=== PATIENT | male | born 1940 | race African-American/Black ===

== ENCOUNTER → 2019-07-18 | Outpatient (CLI) | payer MEDICARE, OTHER ==
[~2019-07-18] MED LIST: ASPIRIN 81M81 MG/TA2 PO; BACTRIM DS 8001 TAB PO; LASIX 20MG TABL20 MG PO; MOBIC15 MG PO; NORCO 325 MG-51 TAB PO; PRILOTC; TOFRANIL 25MG T25 MG PO; TOPROL XL 50MG50 MG PO; VESICARE 5MG5 MG PO; ZOCOR 40MG40 MG PO
== END ==
LOC: ZCOL.LAB 14:05
DX: M79.89 Other specified soft tissue disorders (principal)

== ENCOUNTER → 2019-07-30 | Outpatient (CLI) | payer MEDICARE, OTHER | LOC: ZCOL.LAB 12:59 | DX: M25.442 Effusion, left hand (principal) ==

== ENCOUNTER 2019-08-02 07:43 | Day surgery (SDC) | payer MEDICARE, OTHER ==
[~2019-08-02] VITALS: Ht 170.2 cm; Wt 88.4 kg
[2019-08-02 08:02] VITALS: BP 152/80; PULSE 66; TEMP 98.5
[2019-08-02] MEDS ORDERED: ULTRAM 50MG TAB50 MG PO (08:25)
[2019-08-02 09:48] VITALS: BP 128/64; PULSE 57
--- NOTE | 2019-08-02 09:48 | NUR ---
Patient returns to room 7 per cart from surgery accompanied by Lila CHERRY and Valentin MALDONADO. Patient is awake and alert. Left arm elevated on pillow. Claudio wrap dressing dry on the left hand. IV fluids infusing and site is free of redness. Temp 97.8 and room air sats 94%. Siderails up x2 and call light in reach. Spouse in room. Taking sips of water.
[2019-08-02] MEDS ORDERED: RIFADIN300 MG PO (10:02)
[2019-08-02] MEDS ORDERED: TYLENOL W/COD1 UDTAB PO (10:02)
[2019-08-02 10:03] VITALS: BP 137/68; PULSE 55
[2019-08-02] MEDS ORDERED: BACTRIM DS 8001 TAB PO (10:03)
--- NOTE | 2019-08-02 10:03 | NUR ---
Sipping on orange juice. Room air sats 99%. Denies nausea or pain.
[2019-08-02 10:18] VITALS: BP 136/71; PULSE 61
--- NOTE | 2019-08-02 10:18 | NUR ---
Eating crackers and drinking juice. Room air sats 98%.
--- NOTE | 2019-08-02 10:30 | NUR ---
IV discontinued and states that his left hand is beginning to hurt.
--- NOTE | 2019-08-02 10:40 | NUR ---
Rates pain at 5-6/10. Medicated with [place] 7.5mg two tabs. Patient is dressed and awaits ride home. Spouse in room with the patient.
--- NOTE | 2019-08-02 10:47 | NUR ---
Patient dismissal instructions given and voices understanding of these. Provided scripts x3 and office number for questions and concerns.
--- NOTE | 2019-08-02 11:09 | NUR ---
States that the pain medication is helping and reinforced need to keep the left hand elevated. Spouse also voices understanding of this. Ride here and patient dismissed to home driven by family members with instructions in hand and taken to the front door per wheelchair by Sophie CHERRY.
== END 2019-08-02 11:07 | disposition home or self-care (01) ==
LOC: SDCO 07:43
DX: L02.512 Cutaneous abscess of left hand (principal); S61.012A Laceration without foreign body of left thumb without damage to nail, initial encounter; I10 Essential (primary) hypertension; G47.33 Obstructive sleep apnea (adult) (pediatric); Z79.899 Other long term (current) drug therapy; Z79.82 Long term (current) use of aspirin
CPT/HCPCS: J0690; J2704; J7120

== ENCOUNTER 2022-05-19 14:07 | Observation (INO) | payer MEDICARE, OTHER ==
[2022-05-19] VITALS (40 sets, daily range): BP systolic 115; BP diastolic 64; PULSE 65; TEMP 97.3; O2SAT 99–100
[~2022-05-19] VITALS: Ht 170.2 cm; Wt 84.0 kg
[~2022-05-19 14:07] MED LIST changes: +RIFADIN300 MG PO; +TYLENOL W/COD1 UDTAB PO; +ULTRAM 50MG TAB50 MG PO
[2022-05-19] MEDS ORDERED: FLONASE NASAL S16 GM NS (14:31)
[2022-05-19] MEDS ORDERED: NEURONTIN300 MG/CAP PO (14:32)
[2022-05-19] MEDS ORDERED: TOFRANIL 25MG T25 MG PO (14:33)
[2022-05-19] MEDS ORDERED: NAPROSYN500 MG PO (14:35)
[2022-05-19] MEDS ORDERED: PRILOSEC 20MG20 MG PO (14:36)
[2022-05-19] MEDS ORDERED: NITROSTAT0.4 MG/TAB SL (14:36)
[2022-05-19] MEDS ORDERED: ZOCOR 40MG40 MG PO (14:37)
[2022-05-19] MEDS ORDERED: VESICARE 5MG5 MG PO (14:38)
[2022-05-19] MEDS ORDERED: MAXZIDE-25MG TA1 TAB PO (14:38)
--- NOTE | 2022-05-19 15:13 | NUR ---
PT ADMITTED TO MEDICAL UNIT. ADMISSION INTAKE AND ASSESSMENT COMPLETED, PT DEMENTED AT BASELINE AND UNABLE TO ANSWER MOST QUESTIONS. MED REC UPDATED. PT CURRENTLY REFUSING MOST TREATMENT, IS CONFUSED AT WHY HE IS HERE, WAITING FOR TO ARRIVE TO CALM PT. HEPARIN GTT INFUSING AT 10ML/HR. BED ALARMS IN PLACE. CALL LIGHT WITHIN REACH. WILL CONTINUE TO MONITOR.
--- NOTE | 2022-05-19 16:15 | NUR ---
CALLED RECEIVED FROM RT LEANN THAT PT WAS HAVING ACUTE ME. PLACED ON 2L PER NC. PT RSTING COMFORTABLY IN BED. PLACED ON TELE PER ORDERS. AWAITING FURTHER ORDERS AT THIS TIME.
--- NOTE | 2022-05-19 16:15 | NUR ---
CALLED RECEIVED FROM RT LEANN THAT PT WAS HAVING ACUTE SC. PLACED ON 2L PER NC. PT RSTING COMFORTABLY IN BED. PLACED ON TELE PER ORDERS. AWAITING FURTHER ORDERS AT THIS TIME.
[2022-05-19 16:47] LABS: HEMATOCRIT 38.7 % (42.0-52.0); HEMOGLOBIN 13.3 g/dl (13.5-18.0); MEAN CELL VOLUME 88 fl (80.0-100.0); MEAN CORPUSCULAR HEMOGLOBIN 30 pg (27-31); MEAN CORPUSCULAR HGB CONC 34 g/dl (33.0-37.0); MEAN PLATELET VOLUME 8.9 fl (7.4-10.4); PLATELET COUNT 380 K/mm3 (130-400); RED BLOOD COUNT 4.41 M/mm3 (4.20-5.60); REDCELL DISTRIBUTION WIDTH-CV 15.9 % (11.5-14.5)
[2022-05-19 17:01] LABS: ALBUMIN 3.2 gm/dL (3.4-4.8); CALCIUM 8.5 mg/dL (8.4-10.2); CREATININE, serum 0.78 mg/dL (0.72-1.25); PHOSPHOROUS 2.9 mg/dL (2.3-4.7); POTASSIUM 4.3 mmol/L (3.5-4.5)
--- NOTE | 2022-05-19 17:32 | NUR ---
1709: pt arrived to icu3, family at bedside. pt alert on 2L nc, satting 100%. vss. pt able to tell me where he is but has dementia at baseline. pt calm and cooperative with cares. tnkase pushed at 1709 upon arrival. hep gtt running @ 10ml/hr. trop 1.331, dr lynn lerma. currently working on transfer to [facility].
--- NOTE | 2022-05-19 17:32 | NUR ---
1709: pt arrived to icu3, family at bedside. pt alert on 2L nc, satting 100%. vss. pt able to tell me where he is but has dementia at baseline. pt calm and cooperative with cares. tnkase pushed at 1709 upon arrival. hep gtt running @ 10ml/hr. trop 1.331, dr lynn lerma. currently working on transfer to [facility].
[2022-05-19] MEDS ORDERED: COREG 3.123.125 MG/T PO (17:48)
--- NOTE | 2022-05-19 18:56 | NUR ---
181: Pt transferred to [facility] by EMS [employer]. PT AND DAUGHTER AT BEDSIDE. UPDATED ON POC AND ALL QUESTIONS ANSWERED. PT VS REMAIN STABLE. PT CONTINUES TO DENY CHEST PAIN. REPORT GIVEN TO JO ANN POPE AT [facility]. HEP XA AND PTT WERE RE-DRAWN PRIOR TO DEPARTURE. PTT >300, HEPXA >2. PER PROTOCOL TO STOP 2 HRS. DISCUSSED W/ PHARMACY AND TOSHIA CHERRY RECEIVING PT, CONTINUE TO FOLLOW PROTOCOL, HEP GTT PLACED ON STDBY FOR TRANSFER. TOSHIA CHERRY STATED THEY WOULD REDRDAW UPON ARRIVAL. NO FURTHER NEEDS EXPRESSED.
--- NOTE | 2022-05-19 18:56 | NUR ---
181: Pt transferred to [facility] by EMS [employer]. PT AND DAUGHTER AT BEDSIDE. UPDATED ON POC AND ALL QUESTIONS ANSWERED. PT VS REMAIN STABLE. PT CONTINUES TO DENY CHEST PAIN. REPORT GIVEN TO JO ANN POPE AT [facility]. HEP XA AND PTT WERE RE-DRAWN PRIOR TO DEPARTURE. PTT >300, HEPXA >2. PER PROTOCOL TO STOP 2 HRS. DISCUSSED W/ PHARMACY AND TOSHIA CHERRY RECEIVING PT, CONTINUE TO FOLLOW PROTOCOL, HEP GTT PLACED ON STDBY FOR TRANSFER. TOSHIA CHERRY STATED THEY WOULD REDRDAW UPON ARRIVAL. NO FURTHER NEEDS EXPRESSED.
== END 2022-05-19 19:00 | disposition critical access hospital (66) ==
LOC: MEDICAL 14:07
PROVIDERS: ADMIT Internal Medicine
DX: I21.3 ST elevation (STEMI) myocardial infarction of unspecified site (principal); I50.9 Heart failure, unspecified; K21.9 Gastro-esophageal reflux disease without esophagitis; I11.0 Hypertensive heart disease with heart failure; E78.5 Hyperlipidemia, unspecified; F03.90 Unspecified dementia, unspecified severity, without behavioral disturbance, psychotic disturbance, mood disturbance, and anxiety; M79.2 Neuralgia and neuritis, unspecified; I08.1 Rheumatic disorders of both mitral and tricuspid valves; Z79.82 Long term (current) use of aspirin; Z79.899 Other long term (current) drug therapy
CPT/HCPCS: G0378; G0379; J1644; J3101